=== PATIENT | male | born 1990 | race Caucasian/White ===

== ENCOUNTER 2017-04-03 21:46 | Emergency (ER) | payer OTHER ==
[~2017-04-03] VITALS: Ht 175.3 cm; Wt 77.1 kg
[2017-04-03 22:13] VITALS: BP 110/70
[2017-04-03] MEDS ORDERED: Lidocaine 1% Plain 30 ml INJ ONE (22:15)
--- NOTE | 2017-04-03 22:34 | Emergency Room Report ---
History of Present Illness General Chief Complaint: Puncture Wound Source: Patient Present Illness HPI Is a 26-year-old male with no past medical history. He presents with chief complaint of laceration to the right leg. This occur few hours ago. He had a broken Subhash jar in the trash. When he took it out and stabbed him in the right leg. Denies any other injury. Did not pass out. Tetanus around 10 years. Patient does not want another one. Bleeding controlled. Allergies: Coded Allergies: PENICILLINS (Verified Allergy, Unknown, 04/03/17) Patient History Past Medical History: none, see triage record, old chart reviewed Past Surgical History: none Pertinent Family History: none Social History: Denies: drug use Immunizations: other Reviewed Nursing Documentation: PMH: Agreed, PSxH: Agreed Nursing Documentation-PMH Past Medical History: No History, Except For Hx Gastrointestinal Problems: Yes - irritable bowel Review of Systems Eye: Denies: blurred vision, eye pain ENT: Denies: ear pain, nose congestion, throat swelling Respiratory: Denies: cough, shortness of breath Cardiovascular: Denies: chest pain, palpitations Gastrointestinal: Denies: abdominal pain, diarrhea, nausea, vomiting Musculoskeletal: Denies: back pain, joint pain Skin: Denies: rash Neurological: Denies: headache, numbness Endocrine: Denies: increased thirst, increased urine Hematologic/Lymphatic: Denies: easy bruising All Other Systems: negative except mentioned in HPI Physical Exam Vital Signs Date Time Temp Pulse Resp B/P Pulse Ox O2 Delivery O2 Flow Rate FiO2 04/03/17 21:55 98.2 70 18 110/70 96 Room Air vitals normal Sp02 EP Interpretation: reviewed, normal General Appearance: well appearing, no apparent distress, alert Head: normocephalic, atraumatic Eyes: bilateral eye EOMI, bilateral eye PERRL ENT: hearing grossly normal, normal pharynx Neck: full range of motion, supple, no meningismus Respiratory: chest non-tender, lungs clear, normal breath sounds Cardiovascular #1: regular rate, rhythm, no murmur Gastrointestinal: normal bowel sounds, non tender, no mass, no organomegaly, no bruit, non-distended Musculoskeletal: back normal, gait/station normal, normal range of motion, other - Right lower extremity: 3 cm laceration proximal calf laterally.No foreign bod Psychiatric: mood/affect normal Skin: warm/dry Procedures Laceration/Wound Repair Laceration/Wound Repair : Consent: Verbal Wound Location: lower extremity Wound's Depth, Shape: superficial Wound Length (cm): 3 Wound Explored: clean Irrigated w/ Saline (ccs): 500 Betadine Prep?: Yes Anesthesia: 1% Lidocaine Volume Anesthetic (ccs): 3 Wound Repaired With: sutures Suture Size/Type: 4:0, other - Chromic Number of Sutures: 3 Patient Tolerated: Well Complications: None Medical Decision Making Diagnostic Impression: Primary Impression: Laceration of right lower leg without complication Qualified Codes: S81.811A - Laceration without foreign body, right lower leg, initial encounter ER Course Patient with a laceration to lower extremity. No foreign body. No tendon laceration. Low risk for infection. We'll discharge home. Last Vital Signs Date Time Temp Pulse Resp B/P Pulse Ox O2 Delivery O2 Flow Rate FiO2 04/03/17 22:13 98.2 78 18 110/70 96 Room Air Status: improved Disposition: HOME, SELF-CARE Condition: Stable Additional Instructions: Followup your DrRosamaria in one to 2 weeks. Suture she fall out by then. If not we' ll need removal. Return if symptom worsen. Return for evidence of infection. SAE KNIGHT M.D. Apr 03, 2017 22:34
== END 2017-04-03 22:43 | disposition home or self-care (01) ==
LOC: EMR 22:05
DX: S81.811A Laceration without foreign body, right lower leg, initial encounter (principal); Z88.0 Allergy status to penicillin; W25.XXXA Contact with sharp glass, initial encounter; Y93.E9 Activity, other interior property and clothing maintenance; Y92.9 Unspecified place or not applicable
CPT/HCPCS: 12002; 99284; J2001; Z7502